=== PATIENT | male | born 1945 | race Caucasian/White ===

== ENCOUNTER 2020-09-01 19:40 | Inpatient (IN) | payer OTHER ==
--- OUTSIDE RECORDS SUMMARY | 2020-09-01 19:42 | XMS REPORT ---
:[address] [facility] Address [address] [facility] [address] [place] [address] Care Team Providers Name Role Phone Teresita Calle Unavailable [phone] PROBLEMS No Information ALLERGIES No Known Allergies ENCOUNTERS from 1945 to 2020-08-29 Encounter Location Date Provider Diagnosis [place] [facility] Aug, Teresita Calle UTI (low er urinary Specialty/Urology [address], tract infection) [place] [id number] N39.0 IMMUNIZATIONS No Information SOCIAL HISTORY Tobacco Use: Social History Observation Description Date Details (start date - stop date) Former Smoker Sex Assigned At : Social History Observation Description Sex Assigned At Unknown Alcohol Screen Question Answer Notes Did you have a drink containing alcohol in the past year? No Points 0 Interpretation Negative Tobacco Use/Smoking Question Answer Notes Are you a former smoker REASON FOR REFERRAL No Information VITAL SIGNS Height 74 in Aug, Weight 243.2 lbs Aug, Temperature 99.2 degrees Fahrenheit Aug, BMI 31.22 kg/m2 Aug, Oximetry 91 % Aug, Blood pressure systolic 175 mm Hg Aug, Blood pressure diastolic 76 mm Hg Aug, MEDICATIONS Medication SIG (Take, Route, Frequency, Start Date End Date Status Duration) Isosorbide Dinitrate 30 MG 1 tablet Orally Twice a day Active GlipiZIDE ER 10 MG 1 tablet with breakfast Orally Active Once a day B Complex - as directed Orally Active Gabapentin 300 MG 1 capsule Orally Once a day Active Lisinopril 10 MG 1 tablet Orally Once a day Active Aspirin 81 81 MG 1 tablet Orally Once a day Active Metformin HCl 1000 MG 1 tablet with a meal Orally Active Once a day Clopidogrel Bisulfate 75 MG 1 tablet Orally Once a day Active Atorvastatin Calcium 40 MG 1 tablet Orally Once a day Active BuPROPion HCl 100 MG 1 tablet Orally Twice a day Active Metoprolol Succinate 25 MG 1 capsule Orally Once a day Active PROCEDURES No Information RESULTS No Results REASON FOR VISIT f/u uti MEDICAL (GENERAL) HISTORY Type Description Date Hospitalization History 06/14/2020 Goals Section No Information Health Concerns No Information MEDICAL EQUIPMENT No Information MENTAL STATUS No Information FUNCTIONAL STATUS No Information ASSESSMENTS Encounter Date Diagnosis Notes Aug, UTI (lower urinary tract infection) (ICD -10 - N39.0) PLAN OF TREATMENT Treatment Notes Assessment Notes Clinical Notes UTI (lower urinary tract infection) Urin e reflex, negative RBC'sKeep glans/foreskin clean /dry, wash hands with [facility] prn Treatment Notes Test Name Order Date URINALYSIS AUTO W/O SCOPE ([id number]) 2020-08-29 UMIC with Reflex to Urine Culture 2020-08-29 Next Appt Details prn Reason: Insurance Providers Payer Name Payer Address Payer Insured Patient Coverage Cover age Phone Name Relationship to Start Date End Date Insured MEDICARE Attn Part B [id number] Krishna Larsen Claims [phone] [facility] [id number]
--- OUTSIDE RECORDS SUMMARY | 2020-09-01 19:42 | XMS REPORT ---
:1945 Author Organization [facility] Address [address] [facility] 200 [place] [address] Care Team Providers Name Role Phone Teresita Calle Unavailable [phone] PROBLEMS No Information ALLERGIES No Known Allergies ENCOUNTERS from 1945 to 2020-08-18 Encounter Location Date Provider Diagnosis [place] [facility] 200 13 Aug, 2020 Terseita Calle Specialty[facility] [address] IMMUNIZATIONS No Information SOCIAL HISTORY Tobacco Use: [...] REASON FOR REFERRAL No Information VITAL SIGNS No information MEDICATIONS Medication SIG (Take, Route, Frequency, Start Date End Date Status Duration) Lisinopril 10 MG 1 tablet Orally Once a day Active Isosorbide Dinitrate 30 MG 1 tablet Orally Twice a day Active BuPROPion HCl 100 MG 1 tablet Orally Twice a day Active Metoprolol Succinate 25 MG 1 capsule Orally Once a day Active Gabapentin 300 MG 1 capsule Orally Once a day Active Atorvastatin Calcium 40 MG 1 tablet Orally Once a day Active Aspirin 81 81 MG 1 tablet Orally Once a day Active B Complex - as directed Orally Active GlipiZIDE ER 10 MG 1 tablet with breakfast Orally Active Once a day Metformin HCl 1000 MG 1 tablet with a meal Orally Active Once a day Clopidogrel Bisulfate 75 MG 1 tablet Orally Once a day Active PROCEDURES No Information RESULTS No Results REASON FOR VISIT No Information MEDICAL (GENERAL) HISTORY Type Description Date Hospitalization History 06/14/2020 Goals Section No Information Health Concerns No Information MEDICAL EQUIPMENT No Information MENTAL STATUS No Information FUNCTIONAL STATUS No Information ASSESSMENTS No Information PLAN OF TREATMENT Next Appt Details Provider Name:Teresita Calle, 02:00:00 PM, [address] [place] [address], [facility] [address], [place], [address], Insurance Providers Payer Name Payer Address Payer Insured Patient Coverage Cover age Phone Name Relationship to Start Date End Date Insured MEDICARE Attn Part B [id number] Krishna Larsen Claims [phone] [facility] [id number]
--- OUTSIDE RECORDS SUMMARY | 2020-09-01 19:42 | XMS REPORT ---
:1945 Author Organization [facility] Address [address] [place], [facility] [address] [place] [address] Care Team Providers Name Role Phone Teresita Calle Unavailable [phone] PROBLEMS No Information ALLERGIES No Known Allergies ENCOUNTERS from 1945 to 2020-08-16 Encounter Location Date Provider Diagnosis [place] [address] [facility] Aug, Teresita Calle UTI (osmel cardozo urinary Specialty/Urology [address], tract infection) [place] [id number] N39.0 IMMUNIZATIONS No Information SOCIAL HISTORY Tobacco [...] in Aug, Weight 243.2 lbs Aug, Temperature 98.4 degrees Fahrenheit Aug, BMI 31.22 kg/m2 Aug, Oximetry 95 % Aug, Blood pressure systolic 152 mm Hg Aug, Blood pressure diastolic 66 mm Hg Aug, MEDICATIONS Medication SIG (Take, Route, Frequency, Start Date End Date Status Duration) Metoprolol Succinate 25 MG 1 capsule Orally Once a day Active Atorvastatin Calcium 40 MG 1 tablet Orally Once a day Active Clopidogrel Bisulfate 75 MG 1 tablet Orally Once a day Active Gabapentin 300 MG 1 capsule Orally Once a day Active Lisinopril 10 MG 1 tablet Orally Once a day Active GlipiZIDE ER 10 MG 1 tablet with breakfast Orally Active Once a day Metformin HCl 1000 MG 1 tablet with a meal Orally Active Once a day Isosorbide Dinitrate 30 MG 1 tablet Orally Twice a day Active Aspirin 81 81 MG 1 tablet Orally Once a day Active BuPROPion HCl 100 MG 1 tablet Orally Twice a day Active B Complex - as directed Orally Active PROCEDURES No Information RESULTS No Results REASON FOR VISIT UTI/ANITHA MICHAEL MEDICAL (GENERAL) HISTORY Type Description Date Hospitalization History 06/14/2020 Goals Section No Information Health Concerns No Information MEDICAL EQUIPMENT No Information MENTAL STATUS No Information FUNCTIONAL STATUS No Information ASSESSMENTS Encounter Date Diagnosis Notes Aug, UTI (lower urinary tract infection) (ICD -10 - N39.0) PLAN OF TREATMENT Treatment Notes Assessment Notes Clinical Notes UTI (lower urinary tract infection) Urin e reflex, check for RBC'sKeep glans/foreskin clean /dry, wash hands with each urinationObtain PSA from [facility] from [facility] 2 weeks, urine check again, reports uti r eturns after 2 weeks when done with abx Treatment Notes Test Name Order Date URINALYSIS AUTO W/O SCOPE ([id number]) 2020-08-16 UMIC with Reflex to Urine Culture 2020-08-16 PVR 2020-08-16 Next Appt Details 2 Weeks Reason:Urine Provider Name:Teresita Calle, 02:00:00 PM, [address] [place] [address] S, [address], [place], [address], Follow Up:2 WeeksUrine Insurance Providers Payer Name Payer Address Payer Insured Patient Coverage Cover age Phone Name Relationship to Start Date End Date Insured MEDICARE Attn Part B [id number] Krishna Larsen Claims [phone] [facility] [id number]
--- OUTSIDE RECORDS SUMMARY | 2020-09-01 19:42 | XMS REPORT | Continuity of Care Document ---
:1945 Author Organization [facility] t Address [address] [place] [place] [address] Care Team Providers Name Role Phone Unavailable Unavailable Unavailable Problems This patient has no known problems. Allergies, Adverse Reactions, Alerts This patient has no known allergies or adverse reactions. Medications This patient has no known medications. Procedures This patient has no known procedures. Encounters Start End Encounter Admission Attending Care Care Encounter Source Date/Time Date/Time Type Type Clinicians Facility Department ID 2020-08-26 2020-08-26 Outpatient [facility] [id number] [facility] 2020-08-17 2020-08-17 Outpatient [facility] [id number] [facility] 2020-08-12 2020-08-12 Outpatient [facility] [id number] [facility] Results This patient has no known results.
[2020-09-01] MEDS ORDERED: MORPHINE 4 MG/ML SYR ONE (20:16)
[2020-09-01] MEDS ORDERED: ONDANSETRON 4 MG/2 ML VIAL ONE (20:17)
[2020-09-01] MEDS ORDERED: NA CHLORIDE 0.9% 1,000 ML ONE ×2 (20:17→21:37)
[2020-09-01 20:27] LABS: Absolute Lymphocytes (CBC) 2.3 K/uL (0.7-4.9); Basophils % 0.6 % (0-1.3); Hematocrit 38.3 % (39.6-49.0); Lymphocytes % 19.2 % (15.3-44.8); MPV 7.6 fL (7.6-11.3); RBC Red Blood Cell Count 4.46 M/uL (4.33-5.43)
--- NOTE | 2020-09-01 20:27 | EDPHYS ---
Physician Documentation [facility] Name: Jared Larsen Age: 75 yrs Sex: Male : 1945 Arrival Date: 09/01/2020 Time: 19:42 Bed 5 Private MD: ED Physician Darshan Skelton HPI: 09/01 20:16 This 75 yrs old Male presents to ER via Ambulatory with complaints of Pain pkl All Over. 20:16 The patient presents with abdominal pain that is diffuse. Onset: The symptoms/episode pkl began/occurred 1 week(s) ago, and became worse 4 day(s) ago. Historical: - Allergies: 19:56 No Known Allergies; ll1 - PMHx: 19:56 Hypertension; Hyperlipidemia; heart disease; Pancreatitis; Diverticulitis; ll1 - PSHx: 19:56 Hernia repair; triple A repair; cataract repair; ll1 - Immunization history:: Flu vaccine is not up to date. - Social history:: Smoking status: Patient denies any tobacco usage or history of. ROS: 20:16 Eyes: Negative for injury, pain, redness, and discharge, ENT: Negative for injury, pkl pain, and discharge, Neck: Negative for injury, pain, and swelling, Cardiovascular: Negative for chest pain, palpitations, and edema, Respiratory: Negative for shortness of breath, cough, wheezing, and pleuritic chest pain. 20:16 Abdomen/GI: Positive for abdominal pain, of the right upper quadrant and left upper quadrant. 20:16 Back: Negative for acute changes. 20:16 : Negative for urinary symptoms. 20:16 MS/extremity: Negative for acute changes. 20:16 Skin: Negative for rash. 20:16 Neuro: Negative for altered mental status, loss of consciousness. Exam: 20:16 Head/Face: Normocephalic, atraumatic. Eyes: Pupils equal round and reactive to light, pkl extra-ocular motions intact. Lids and lashes normal. Conjunctiva and sclera are non-icteric and not injected. Cornea within normal limits. Periorbital areas with no swelling, redness, or edema. ENT: Nares patent. No nasal discharge, no septal abnormalities noted. Tympanic membranes are normal and external auditory canals are clear. Oropharynx with no redness, swelling, or masses, exudates, or evidence of obstruction, uvula midline. Mucous membranes moist. Neck: Trachea midline, no thyromegaly or masses palpated, and no cervical lymphadenopathy. Supple, full range of motion without nuchal rigidity, or vertebral point tenderness. No Meningismus. Chest/axilla: Normal chest wall appearance and motion. Nontender with no deformity. No lesions are appreciated. Cardiovascular: Regular rate and rhythm with a normal S1 and S2. No gallops, murmurs, or rubs. Normal PMI, no JVD. No pulse deficits. Respiratory: Lungs have equal breath sounds bilaterally, clear to auscultation and percussion. No rales, rhonchi or wheezes noted. No increased work of breathing, no retractions or nasal flaring. 20:16 Abdomen/GI: Bowel sounds: normal, Palpation: soft, mild abdominal tenderness, in the right upper quadrant and left upper quadrant. 20:16 Back: Exam negative for acute changes. 20:16 : Exam negative for acute changes. 20:16 Musculoskeletal/extremity: Exam is negative for acute changes. 20:16 Skin: Exam negative for rash. 20:16 Neuro: Orientation: is normal, Mentation: is normal, Cranial nerves: grossly normal, Motor: is normal. Vital Signs: 19:54 BP 164 / 103; Pulse 68; Resp 18; Temp 97.6; Pulse Ox 95% ; Weight 111.13 kg; Height 6 ll1 ft. 2 in. (187.96 cm); Pain 8/10; 21:25 BP 149 / 58; Pulse 62; Resp 16; Pulse Ox 98% on R/A; rv 19:54 Body Mass Index 31.46 (111.13 kg, 187.96 cm) ll1 MDM: 19:44 Patient medically screened. pkl 20:24 Data reviewed: vital signs, nurses notes, lab test result(s), radiologic studies, CT pkl scan. ED course: Talked to Alberto Lucero, it ( Dr. Giraldo ). 09/01 20:11 Order name: Basic Metabolic Panel; Complete Time: 21:17 pkl 09/01 20:11 Order name: CBC with Diff; Complete Time: 21:17 pkl 09/01 20:11 Order name: Hepatic Function; Complete Time: :17 pkl 09/01 20:11 Order name: Lipase; Complete Time: 21:17 pkl 09/01 20:43 Order name: COVID-19 pkl 09/01 20:43 Order name: [facility] 09/01 20:11 Order name: IV Saline Lock; Complete Time: 20:14 pkl 09/01 20:11 Order name: Labs collected and sent; Complete Time: 20:14 pkl 09/01 20:24 Order name: NPO; Complete Time: 20:36 sg Administered Medications: 20:14 Drug: NS 0.9% 500 ml Route: IV; Rate: bolus; Site: right forearm; rv 21:07 Follow up: IV Status: Completed infusion; IV Intake: 500ml rv 20:14 Drug: morphine 4 mg Route: IVP; Site: right forearm; rv 21:08 Follow up: Response: No adverse reaction; Pain is unchanged, physician notified; RASS: rv Alert and Calm (0) 20:14 Drug: Zofran (Ondansetron) 4 mg Route: IVP; Site: right forearm; rv 21:08 Follow up: Response: No adverse reaction rv 20:40 Drug: Demerol 25 mg Route: IVP; Site: right forearm; sg 21:20 Follow up: Response: No adverse reaction; Pain is decreased sg 20:40 Drug: NS 0.9% 500 ml Route: IV; Rate: bolus; Site: right forearm; sg 21:15 Follow up: Response: No adverse reaction; IV Intake: 500ml sg 21:25 Follow up: IV Status: Completed infusion; IV Intake: 500ml rv 21:25 Drug: NS 0.9% 1000 ml Route: IV; Rate: 125 ml/hr; Site: right antecubital; rv 21:58 Follow up: IV Status: Infusion continued upon admission rv Disposition: 09/01/20 20:26 Hospitalization ordered by Kirill Giraldo for Inpatient Admission. Preliminary diagnosis is Acute pancreatitis. - Bed requested for Telemetry/MedSurg (Inpatient). - Status is Inpatient Admission. rv - Condition is Stable. - Problem is new. - Symptoms are unchanged. Signatures: Dispatcher [employer] EDWI Kleber Lopez RN RN sg Lam, Pin, MD MD pkl Attema, Lee, TRAINING PROGRAM MANAGER-C TRAINING PROGRAM MANAGER-Cla1 Vanna Lindquist RN RN tl1 Rowdy Augustin RN RN Jean Carlos Chapa RN RN ll1 Corrections: (The following items were deleted from the chart) 21:22 20:26 Hospitalization Ordered by Kirill Giraldo DO for Inpatient Admission. Preliminary tl1 diagnosis is Acute pancreatitis. Bed requested for Telemetry/MedSurg (Inpatient). Status is Inpatient Admission. Condition is Stable. Problem is new. Symptoms are unchanged. pkl 21:57 21:22 09/01/2020 20:26 Hospitalization Ordered by Kirill Giraldo DO for Inpatient rv Admission. Preliminary diagnosis is Acute pancreatitis. Bed requested for Telemetry/MedSurg (Inpatient). Status is Inpatient Admission. Condition is Stable. Problem is new. Symptoms are unchanged. tl1
--- NOTE | 2020-09-01 20:27 | ER ---
Nurse's Notes [facility] Name: Jared Larsen Age: 75 yrs Sex: Male : 1945 Arrival Date: 09/01/2020 Time: 19:42 Bed 5 Private MD: Diagnosis: Acute pancreatitis Presentation: 09/01 19:54 Chief complaint: Patient states: Abdominal pain since Sunday with constipation. Had CT ll1 today at [place], was told to come to ER for pancreatitis. No fever. Coronavirus screen: Client denies travel out of the [place] in the last 14 days. At this time, the client does not indicate any symptoms associated with coronavirus-19. Ebola Screen: Patient denies travel to an Ebola-affected area in the 21 days before illness onset. Initial Sepsis Screen: Does the patient meet any 2 criteria? No. Patient's initial sepsis screen is negative. Does the patient have a suspected source of infection? Yes: Acute abdominal pain. Risk Assessment: Do you want to hurt yourself or someone else? Patient reports no desire to harm self or others. Onset of symptoms was August 28, 2020. 19:54 Method Of Arrival: Ambulatory ll1 19:54 Acuity: YANIV 3 ll1 Historical: - Allergies: 19:56 No Known Allergies; ll1 - PMHx: 19:56 Hypertension; Hyperlipidemia; heart disease; Pancreatitis; Diverticulitis; ll1 - PSHx: 19:56 Hernia repair; triple A repair; cataract repair; ll1 - Immunization history:: Flu vaccine is not up to date. - Social history:: Smoking status: Patient denies any tobacco usage or history of. Screenin:21 Abuse screen: Denies threats or abuse. Denies injuries from another. Nutritional rv screening: No deficits noted. Tuberculosis screening: No symptoms or risk factors identified. Fall Risk None identified. Assessment: 20:20 General: Appears comfortable, Behavior is calm, cooperative. Pain: Pain: Complains of rv pain in abdomen. Neuro: Level of Consciousness is awake, alert, obeys commands, Oriented to person, place, time, situation. Cardiovascular: Patient's skin is warm and dry. Respiratory: Airway is patent Respiratory effort is even, unlabored, Breath sounds are clear bilaterally. Derm: Skin is intact. 21:30 Reassessment: outside lab, Stanley notified pt to be hospitalized, swab to be ran in house. Vital Signs: 19:54 BP 164 / 103; Pulse 68; Resp 18; Temp 97.6; Pulse Ox 95% ; Weight 111.13 kg; Height 6 ll1 ft. 2 in. (187.96 cm); Pain 8/10; 21:25 BP 149 / 58; Pulse 62; Resp 16; Pulse Ox 98% on R/A; rv 19:54 Body Mass Index 31.46 (111.13 kg, 187.96 cm) ll1 ED Course: 19:42 Patient arrived in ED. cl3 19:44 Darshan Skelton MD is Attending Physician. pkl 19:47 Rowdy Augustin RN is Primary Nurse. rv 19:55 Triage completed. ll1 19:57 Arm band placed on Patient placed in an exam room, on a stretcher. ll1 20:10 Inserted saline lock: 20 gauge in right forearm, using aseptic technique. Blood rv collected. 20:10 Initial lab(s) drawn, by me, sent to lab. rv 20:21 Patient has correct armband on for positive identification. Bed in low position. Call rv light in reach. Side rails up X 1. Adult w/ patient. Pulse ox on. NIBP on. 20:25 Kirill Giraldo DO is Hospitalizing Provider. pkl 21:00 COVID 19 swab done and sent to lab at this time. sg 21:26 No provider procedures requiring assistance completed. IV is patent, with fluids rv infusing freely, Patient admitted, IV remains in place. Administered Medications: 20:14 Drug: NS 0.9% 500 ml Route: IV; Rate: bolus; Site: right forearm; rv 21:07 Follow up: IV Status: Completed infusion; IV Intake: 500ml rv 20:14 Drug: morphine 4 mg Route: IVP; Site: right forearm; rv 21:08 Follow up: Response: No adverse reaction; Pain is unchanged, physician notified; RASS: rv Alert and Calm (0) 20:14 Drug: Zofran (Ondansetron) 4 mg Route: IVP; Site: right forearm; rv 21:08 Follow up: Response: No adverse reaction rv 20:40 Drug: Demerol 25 mg Route: IVP; Site: right forearm; sg 21:20 Follow up: Response: No adverse reaction; Pain is decreased sg 20:40 Drug: NS 0.9% 500 ml Route: IV; Rate: bolus; Site: right forearm; sg 21:15 Follow up: Response: No adverse reaction; IV Intake: 500ml sg 21:25 Follow up: IV Status: Completed infusion; IV Intake: 500ml rv 21:25 Drug: NS 0.9% 1000 ml Route: IV; Rate: 125 ml/hr; Site: right antecubital; rv 21:58 Follow up: IV Status: Infusion continued upon admission rv Intake: 21:07 IV: 500ml; Total: 500ml. rv 21:15 IV: 500ml; Total: 1000ml. sg 21:25 IV: 500ml; Total: 1500ml. rv Outcome: 20:26 Decision to Hospitalize by Provider. pkl 21:26 Admitted to Med/surg accompanied by tech, via wheelchair, room 228, Other sbar Report rv called to [facility] 21:26 Condition: good 21:26 Instructed on the need for admit. 21:57 Patient left the ED. rv Signatures: Kleber Lopez RN RN sg Darshan Skelton MD MD pkl Rowdy Augustin RN Duane Hunter cl3 Jean Carlos Myles RN RN ll1 Corrections: (The following items were deleted from the chart) 20:40 20:40 NS 0.9% 500 ml IV at bolus in right antecubital sg sg 21:08 21:07 IV Status: Completed infusion; IV Intake: 500ml rv rv 21:57 21:26 Admitted to Med/surg accompanied by tech, via wheelchair, room 228, Other sbar rv Report called to [facility] rv
[2020-09-01 20:46] LABS: Albumin 3.9 g/dL (3.4-5.0); Bilirubin Direct 0.2 mg/dL (0-0.2); Bilirubin Total 0.4 mg/dL (0.2-1.0); Potassium 4.3 mmol/L (3.5-5.1); Protein, Total 8.2 g/dL (6.4-8.2)
[2020-09-01] MEDS ORDERED: MEPERIDINE HCL 25 MG/ML SYR ONE (20:51)
--- NOTE | 2020-09-01 21:50 | P.HP ---
Certification for Inpatient Patient admitted to: Inpatient With expected LOS: >2 Midnights Patient will require the following post-hospital care: None Practitioner: I am a practitioner with admitting privileges, knowledge of patient current condition, hospital course, and medical plan of care. Services: Services provided to patient in accordance with Admission requirements found in Title 42 Section 412.3 of the Code of Federal Regulations <Alberto Lucero - Last Filed: 09/01/20 21:45> Patient History Date of Service: 09/01/20 Primary Care Provider: [place], Cardiology-Dr. Brown Reason for admission: Pancreatitis History of Present Illness: 75-year-old male with history of diabetes mellitus type 2, coronary artery disease status post CABG, peripheral vascular disease, pancreatitis, hypertension presents emergency department for abdominal pain. Patient was seen by primary care doctor and had outpatient CT scan which revealed mild pancreatitis, private physician recommended patient presents emergency department for further evaluation and management. Patient was evaluated in the emergency department and found to have mildly elevated lipase at 499, white blood cell count 12.2. Patient reports 1 previous episode of pancreatitis which was also a mild. Patient came with radiology report from [facility] revealing mild pancreatitis, disk was also reviewed by on site radiologist to agreed with read. ED provider wishes to admit patient for further evaluation and management. When I saw the patient in the emergency department he was awake, alert, oriented x3. Patient reporting mild epigastric pain and tenderness. Patient is a [place] patient but also has Medicare and states that he does not want to have to deal with the [place] and prefers to be admitted here. - Past Medical/Surgical History -: Diabetes mellitus type 2 -: Hypertension -: Hyperlipidemia -: Pancreatitis -: Aortic aneurysm with repair -: Peripheral vascular disease -: Abdominal aortic aneurysm repair -: Hernia repair -: CABG Psychosocial/ Personal History: Patient is disabled , lives with his - Family History Family History: Reviewed- Non-Contributory - Social History Smoking Status: Former smoker Alcohol use: No CD- Drugs: No Caffeine use: Yes Place of Residence: Home <Alberto Lucero - Last Filed: 09/01/20 21:45> Date of Service: 09/02/20 Home medications list reviewed: Yes - Past Medical/Surgical History Diabetic: Yes - Family History Family History: Reviewed- Non-Contributory <Kirill Giraldo - Last Filed: 09/02/20 09:11> Allergies No Known Allergies Allergy (Verified 09/01/20 22:44) Home Medications: Aspirin [Aspirin EC 81 MG] 81 mg PO DAILY 09/01/20 Atorvastatin Calcium [Lipitor] 20 mg PO BEDTIME 09/01/20 Bupropion HCl [Wellbutrin] 150 mg PO DAILY 09/01/20 Clopidogrel Bisulfate [Plavix] 1 tab PO DAILY 09/01/20 Gabapentin 300 mg PO TID 09/01/20 Insulin Glargine Human [Lantus] 50 unit SQ BIDWM 09/01/20 Isosorbide Mononitrate [Isosorbide Mononitrate ER] 30 mg PO BID 09/01/20 Levothyroxine Sodium 25 mcg PO [id number] 09/01/20 Lisinopril [Zestril] 10 mg PO DAILY 09/01/20 Metformin HCl 1,000 mg PO BIDWM 09/01/20 Metoprolol Succinate 25 mg PO DAILY 09/01/20 Vitamin B Complex [B Complex] 1 each PO DAILY 09/01/20 glipiZIDE [Glipizide] 20 mg PO BIDWM 09/01/20 hydrOXYzine HCL [Atarax] 50 mg PO BEDTIME PRN 09/01/20 Review of Systems 10-point ROS is otherwise unremarkable Gastrointestinal: Nausea, Abdominal Pain <Alberto Lucero - Last Filed: 09/01/20 21:45> Physical Examination - Physical Exam General: Alert, In no apparent distress HEENT: Atraumatic, PERRLA, Mucous membr. moist/pink Neck: Supple, 2+ carotid pulse no bruit, No LAD Respiratory: Clear to auscultation bilaterally, Normal air movement Cardiovascular: Regular rate/rhythm, Normal S1 S2 Gastrointestinal: Normal bowel sounds, Tenderness (Mild generalized abdominal tenderness, worse in the epigastric region) Musculoskeletal: No tenderness Integumentary: No rashes Neurological: Normal speech, Normal strength at 5/5 x4 extr, Normal tone, Normal affect - Studies Laboratory Data (last 24 hrs) 09/01/20 20:10: WBC 12.2 H, Hgb 13.0 L, Hct 38.3 L, Plt Count 236 09/01/20 20:10: Sodium 141, Potassium 4.3, BUN 14, Creatinine 1.00, Glucose 116 H, Total Bilirubin 0.4, AST 15, ALT 27, Alkaline Phosphatase 80, Lipase 499 H <Alberto Lucero - Last Filed: 09/01/20 21:45> - Studies Laboratory Data (last 24 hrs) 09/01/20 20:10: WBC 12.2 H, Hgb 13.0 L, Hct 38.3 L, Plt Count 236 09/01/20 20:10: Sodium 141, Potassium 4.3, BUN 14, Creatinine 1.00, Glucose 116 H, Total Bilirubin 0.4, AST 15, ALT 27, Alkaline Phosphatase 80, Lipase 499 H <Kirill Giraldo - Last Filed: 09/02/20 09:11> Assessment and Plan - Plan Assessment Mild acute pancreatitis Diabetes mellitus type 2 Hypertension Hyperlipidemia CAD and PVD history of CABG Plan Mild acute pancreatitis: NPO, IV fluids. P.r.n. pain and nausea medications. Trend lipase, daily labs. DVT prophylaxis Lovenox 40 mg subcutaneous once daily. Will obtain lipid panel with morning labs. Patient denies alcohol use or abuse. Diabetes mellitus type 2: Q.6h blood sugars as patient is NPO at this time, sliding scale insulin therapy. Will check A1c with morning labs. Hypertension: Hold p.o. medications at this time, continue with p.r.n. IV medications and tell patient can tolerate p.o. then restart home medications. Hyperlipidemia: Hold p.o. medications CAD and PVD history of CABG: Hold p.o. medications at this time. Will restart once patient is tolerating p.o.. Discharge Plan: Home Plan to discharge in: 24 Hours - Advance Directives Does patient have a Living Will: No Does patient have a Durable POA for Healthcare: No - Code Status/Comfort Care Code Status Assessed: Yes (Full code) Critical Care: No Time Spent Managing Pts Care (In Minutes): 55 <Alberto Lucero - Last Filed: 09/01/20 21:45> - Plan Case discussed in detail with nurse practitioner. Agree with evaluation, assessment and plan of care. Patient has improved. Will obtain CT scan from other facility. Will obtain abdominal ultrasound to further evaluate. Will start with a clear liquid diet today. Will continue to further assess. Please see progress note for details. <Kirill Giraldo - Last Filed: 09/02/20 09:11>
[2020-09-01] MEDS ORDERED: INSULIN -REGULAR HUMAN 50 UNIT/0.5 ML ML SQ SCH (21:56)
[2020-09-01] MEDS ORDERED: ONDANSETRON 4 MG/2 ML VIAL IV PRN (21:56)
[2020-09-01] MEDS ORDERED: NA CHLORIDE 0.9% 1,000 ML IV SCH (21:56)
[2020-09-01 23:09] VITALS: BMI 31.4
[2020-09-01] MEDS: D5 0.45 NS 1,000 ML IV SCH (23:30)
[2020-09-02] MEDS ORDERED: INSULIN -REGULAR HUMAN 50 UNIT/0.5 ML ML SQ SCH
[2020-09-02] MEDS: MEPERIDINE HCL 25 MG/ML SYR IVP PRN ×4 (00:21→15:09)
[2020-09-02 04:48] LABS: Urine Appearance CLEAR; Urine Bilirubin NEGATIVE (NEG); Urine Blood NEGATIVE (NEG); Urine Color YELLOW; Urine Glucose NEGATIVE (NEG); Urine Protein NEGATIVE (NEG); Urine Specific Gravity 1.015 (1.005-1.030); Urine Urobilinogen 0.2 mg/dL (0.2-1.0); Urine pH 5.5 (5.0-7.0)
[2020-09-02 04:51] LABS: Urine Microscopic Reflex NO UMIC
[2020-09-02 05:57] LABS: Absolute Lymphocytes (CBC) 2.4 K/uL (0.7-4.9); Basophils % 0.5 % (0-1.3); Lymphocytes % 28.3 % (15.3-44.8); MPV 7.3 fL (7.6-11.3); RBC Red Blood Cell Count 4.14 M/uL (4.33-5.43)
[2020-09-02] MEDS: INSULIN -REGULAR HUMAN 50 UNIT/0.5 ML ML SQ SCH ×5 (06:00→20:58)
[2020-09-02 06:05] LABS: Albumin 3.2 g/dL (3.4-5.0); Bilirubin Total 0.4 mg/dL (0.2-1.0); Potassium 4.1 mmol/L (3.5-5.1); Protein, Total 7.2 g/dL (6.4-8.2)
[2020-09-02 06:10] LABS: Thyroid Stimulating Hormone 6.8 uIU/mL (0.360-3.740)
[2020-09-02] MEDS: ISOSORBIDE MONO SR 30 MG TAB PO SCH ×3 (08:56→20:00)
[2020-09-02] MEDS: CLOPIDOGREL 75 MG TABLET PO SCH (08:56)
[2020-09-02] MEDS: METOPROLOL XL 25 MG TAB PO SCH (08:56)
[2020-09-02] MEDS: ENOXAPARIN 40 MG/0.4 ML SQ SCH (08:56)
[2020-09-02] MEDS: ASPIRIN EC 81 MG TAB PO SCH (08:57)
[2020-09-02] MEDS: BUPROPION HCL 150 MG PO SCH (08:57)
[2020-09-02] MEDS: lisinopriL 10 MG TAB PO SCH (09:00)
[2020-09-02] MEDS: VITAMIN B COMPLEX 1 CAP PO SCH (09:03)
[2020-09-02] MEDS: D5 0.45 NS 1,000 ML IV SCH ×2 (09:04→17:36)
--- NOTE | 2020-09-02 09:05 | RAD REPORT ---
EXAM DESCRIPTION: US - Abdomen Exam Complete - 09/02/2020 8:32 am CLINICAL HISTORY: Abdominal pain COMPARISON: none FINDINGS: The liver has a mildly increased echotexture which may indicate mild fatty infiltration A gallstone is not seen. The gallbladder wall is not thickened. The biliary tree is normal caliber. G allbladder is mildly distended The pancreas is enlarged and hypoechoic. A pseudocyst is not seen The right kidney measures 11 centimeters with a normal echotexture. The left kidney measures 11 centimeters with a normal echotexture. 3.3 centimeter cyst. Additional 1. 2 centimeters cyst The spleen measures 12 centimeters. The proximal and mid abdominal aorta and inferior vena cava appear unremarkable. The distal abdominal aorta and the patient's known stent are not visualized secondary to overlying bowel gas IMPRESSION: Enlarged and hypoechoic pancreas consistent with pancreatitis. A pseudocyst is not seen
--- NOTE | 2020-09-02 09:16 | P.PN ---
Subjective Date of Service: 09/02/20 Primary Care Provider: [place], Cardiology-Dr. Brown Chief Complaint: Pancreatitis Physical Examination - Vital Signs Temperature: 97.1 F Blood Pressure: 168/60 Pulse: 67 Respirations: 19 Pulse Ox (%): 94 - Studies Laboratory Data (last 24 hrs) 09/01/20 20:10: WBC 12.2 H, Hgb 13.0 L, Hct 38.3 L, Plt Count 236 09/01/20 20:10: Sodium 141, Potassium 4.3, BUN 14, Creatinine 1.00, Glucose 116 H, Total Bilirubin 0.4, AST 15, ALT 27, Alkaline Phosphatase 80, Lipase 499 H Assessment & Plan Discharge Plan: Home Plan to discharge in: 48 Hours Physician Review Additional Text: Impression: Acute pancreatitis, etiology unknown Diabetes mellitus type 2 Hypertension Hyperlipidemia CAD and PVD history of CABG Depression Diabetic neuropathy Plan Acute pancreatitis, etiology unknown: Patient reports history of pancreatitis in the past. Will obtain CT scan from recent facility and have Radiology review. Will also order abdominal ultrasound to further evaluate. Patient appears improved. Pain seems to be well controlled. Minimal pain to the epigastric region. No significant nausea vomiting noted. Lipase also improved. Will start with a clear liquid diet at this time. Will advance diet slowly and monitor closely. Continue IV fluids, pain medication. Will monitor lipase. Continue DVT prophylaxis. Anticipate improvement over the next 48 hr. Diabetes mellitus type 2, insulin dependent, controlled: A1c well controlled at 7.0. Will continue Accu-Cheks and sliding scale. Patient also takes glipizide, metformin, and high-dose insulin. May need to make adjustments while here. Will monitor closely on sliding scale. Hypertension: Restart home medication of lisinopril and metoprolol. Will monitor and adjust appropriately. Hyperlipidemia: Triglycerides slightly elevated. Will start fish oil. CAD and PVD history of CABG: Will start Plavix and isosorbide mononitrate. Depression: Restart Wellbutrin Diabetic neuropathy: Restart gabapentin Time Spent Managing Pts Care (In Minutes): 55
[2020-09-02] MEDS ORDERED: TRAMADOL HCL 50 MG TAB PO PRN (12:52)
[2020-09-02] MEDS: NACHLORIDE 0.45% 1,000 ML IV SCH (17:00)
[2020-09-02] MEDS: HYDROCODONE/APAP 7.5/325 MG TAB PO PRN (19:59)
[2020-09-02] MEDS: DOCOSAHEXANOIC AC/EPA 1000 MG PO SCH (20:00)
[2020-09-02] MEDS: ATORVASTATIN 20 MG TAB PO SCH (20:00)
[2020-09-02] MEDS: GABAPENTIN 300 MG CAP PO SCH (20:00)
[2020-09-02] MEDS: hydrOXYzine HCL 25 MG TAB PO PRN (23:44)
[2020-09-03] MEDS: HYDROCODONE/APAP 7.5/325 MG TAB PO PRN ×4 (03:20→21:54)
[2020-09-03] MEDS: NACHLORIDE 0.45% 1,000 ML IV SCH ×2 (05:34→08:52)
[2020-09-03] MEDS: LEVOTHYROXINE SOD 0.025 MG TAB PO SCH (05:35)
[2020-09-03 06:16] LABS: Absolute Lymphocytes (CBC) 2.5 K/uL (0.7-4.9); Basophils % 0.5 % (0-1.3); Hematocrit 34.7 % (39.6-49.0); MPV 7.4 fL (7.6-11.3); RBC Red Blood Cell Count 4.03 M/uL (4.33-5.43)
[2020-09-03 06:37] LABS: Albumin 3.4 g/dL (3.4-5.0); Bilirubin Total 0.5 mg/dL (0.2-1.0); Magnesium 2.3 mg/dL (1.8-2.4); Potassium 4.2 mmol/L (3.5-5.1); Protein, Total 7.3 g/dL (6.4-8.2)
[2020-09-03] MEDS: INSULIN -REGULAR HUMAN 50 UNIT/0.5 ML ML SQ SCH ×4 (07:30→21:00)
--- NOTE | 2020-09-03 07:30 | P.DS ---
Admission Date: 09/01/20 Discharge Date: 09/04/20 Primary Care Provider: [place], Cardiology-Dr. Brown Disposition: ROUTINE DISCHARGE Discharge Condition: GOOD Reason for Admission: Pancreatitis Consultations: None Procedures: COVID: Negative CT scan: Reported pancreatitis ABUS: FINDINGS: The liver has a mildly increased echotexture which may indicate mild fatty infiltration A gallstone is not seen. The gallbladder wall is not thickened. The biliary tree is normal caliber. Gallbladder is mildly distended The pancreas is enlarged and hypoechoic. A pseudocyst is not seen The right kidney measures 11 centimeters with a normal echotexture. The left kidney measures 11 centimeters with a normal echotexture. 3.3 centimeter cyst. Additional 1.2 centimeters cyst The spleen measures 12 centimeters. The proximal and mid abdominal aorta and inferior vena cava appear unremarkable. The distal abdominal aorta and the patient's known stent are not visualized secondary to overlying bowel gas IMPRESSION: Enlarged and hypoechoic pancreas consistent with pancreatitis. A pseudocyst is not seen KUB: COMPARISON: No comparisons FINDINGS: Air is present within non distended stomach. No small bowel dilatation. No free air or pneumatosis. Moderately large stool volume is present from cecum to mid descending colon. There is contrast material intermixed within the stool volume. No abnormal stool volume in the distal descending colon, sigmoid colon or rectum. Arterial calcifications are present. Aortioiliac stenting in place. No suspicious calcifications. Bony degenerative change present with no acute finding. IMPRESSION: Moderate stool volume mixed with contrast material fills but does not dilate colon from cecum to mid descending colon. Medical Problem List: Acute pancreatitis, etiology unknown possibly related to hypertriglyceridemia or medication Diabetes mellitus type 2 Hypertension Hyperlipidemia CAD and PVD history of CABG Depression Diabetic neuropathy Constipation Brief History of Present Illness: 75-year-old male with history of diabetes mellitus type 2, coronary artery disease status post CABG, peripheral vascular disease, hypertension presents emergency department for abdominal pain. Patient was seen by primary care doctor and had outpatient CT scan which revealed mild pancreatitis. Patient reported history of pancreatitis in the past. His private physician recommended patient go to the emergency department for further evaluation and management. Patient was evaluated in the emergency department and found to have mildly elevated lipase at 499, white blood cell count 12.2. Patient came with radiology report from [facility] revealing mild pancreatitis. Patient was admitted for further evaluation and treatment. Hospital Course: Patient presented with abdominal pain, nausea and vomiting. Patient found to have acute pancreatitis. Patient was admitted for further evaluation and treatment. Mild elevation in lipase was noted. Patient with history of pancreatitis in the past. CT scan done at another facility showed pancreatitis. No pseudocyst mention. Abdominal ultrasound done here showed no cholecystitis or biliary tree abnormality. Pancreas appeared and largest suspicious for pancreatitis. No pseudocyst noted. The patient did well then the course of his stay. His diet was slowly advanced. At discharge he is without significant nausea, vomiting or abdominal pain. Etiology of pancreatitis has not been determined. Triglycerides were found to be slightly elevated at 160. Medications reviewed to determine if medication related. At discharge patient will continue with a soft 2000 ADA diet. The patient will be started on fish oil 1000 mg 1 pill twice daily for his hypertriglyceridemia. Will also recom mend to discontinue metformin and glipizide as the patient's diabetes is very well controlled on insulin therapy. Recommendation is for the patient to follow up with GI as an outpatient to further evaluate possible etiology of his pancreatitis. Patient with diabetes mellitus type 2 insulin dependent. Diabetes is well controlled at 7.0. Patient did not require any glipizide or metformin during his stay. Patient was on insulin sliding scale in the hospital. Medications reviewed. Glipizide was discontinued due to increase risk of hypoglycemia especially in an elderly patient. Metformin was discontinued as this may be a possible reason for his pancreatitis. At discharge patient will continue with Lantus 10 units subcu at bedtime. Recommend to monitor blood sugar at least twice daily. Recommend to maintain blood sugar less than 140 fasting and less than 200 after meals. Further adjustment in his Lantus may be required. If blood sugars remain elevated consider restarting metformin. This can be done with the help of his PCP. Patient with hypertension. This has remained stable. At discharge patient will continue with lisinopril 10 mg daily and Toprol-XL 25 mg daily. Recommend to maintain blood pressure less than 130/80. Further adjustment in his medication can be done by his PCP. Patient with mixed hyperlipidemia. Triglyceride level slightly elevated at 160. At discharge patient will continue with Lipitor 20 mg daily. Additional medication fish oil 1000 mg 1 pill twice daily has been added. Recommend to recheck fasting lipid panel in 4-6 weeks to monitors progress. Further adjustment can be done by his PCP. Patient with history of CAD, PVD and prior CABG. At discharge patient will continue with aspirin 81 mg daily, Plavix 75 mg daily, and Imdur 30 mg 1 pill twice daily. Recommend follow up with cardiology as directed. Patient with history of depression. At discharge he may continue with Wellbutrin 150 mg daily. Patient with diabetic neuropathy. Patient takes gabapentin 300 mg 3 times a day but he mentions that he primarily takes it at night. Further adjustment in his medication can be done by his PCP. Patient with hypothyroidism. At discharge patient may continue with his levothyroxine 25 mcg daily. Tsh 6.8, free T4 0.97. Recommend to recheck tsh and free T4 in 4-6 weeks. Further adjustment may be required. This can be done with the help of his PCP. Patient had some constipation. Patient will be given lactulose twice daily as needed for constipation. Encourage prune juice. Patient may take stool softener as well. Also encouraged to use incentive spirometer. Vital Signs/Physical Exam: Temp Pulse Resp BP Pulse Ox 98.2 F 60 19 144/65 H 96 09/03/20 04:00 09/03/20 04:00 09/03/20 04:20 09/03/20 04:00 09/03/20 04:20 General: Alert, In no apparent distress, Oriented x3, Cooperative HEENT: Atraumatic Neck: Supple Respiratory: Clear to auscultation bilaterally, Normal air movement Cardiovascular: Normal pulses, Regular rate/rhythm Gastrointestinal: Normal bowel sounds, Soft and benign, Non-distended, No masses, No rebound, No guarding, Tenderness (No significant abdominal pain noted.) Neurological: Normal speech, Normal strength at 5/5 x4 extr, Normal tone, Normal affect Laboratory Data at Discharge: WBC 8.4 K/uL (4.3-10.9) 09/03/20 05:44 Hgb 11.8 g/dL (13.6-17.9) L 09/03/20 05:44 Hct 34.7 % (39.6-49.0) L 09/03/20 05:44 Plt Count 217 K/uL (152-406) 09/03/20 05:44 Sodium 140 mmol/L (136-145) 09/03/20 05:44 Potassium 4.2 mmol/L (3.5-5.1) 09/03/20 05:44 BUN 11 mg/dL (7-18) 09/03/20 05:44 Creatinine 0.91 mg/dL (0.55-1.3) 09/03/20 05:44 Glucose 121 mg/dL (74-106) H 09/03/20 05:44 Magnesium 2.3 mg/dL (1.8-2.4) 09/03/20 05:44 Total Bilirubin 0.5 mg/dL (0.2-1.0) 09/03/20 05:44 AST 14 U/L (15-37) L 09/03/20 05:44 ALT 23 U/L (12-78) 09/03/20 05:44 Alkaline Phosphatase 74 U/L (45-117) 09/03/20 05:44 Triglycerides 160 mg/dL (<150) H 09/02/20 05:26 Cholesterol 92 mg/dL (<200) 09/02/20 05:26 HDL Cholesterol 30 mg/dL (40-60) L 09/02/20 05:26 Cholesterol/HDL Ratio 3.07 09/02/20 05:26 Lipase 439 U/L (73-393) H 09/03/20 05:44 Home Medications: Aspirin [Aspirin EC 81 MG] 81 mg PO DAILY 09/01/20 Atorvastatin Calcium [Lipitor*] 20 mg PO BEDTIME 09/01/20 Bupropion HCl [Wellbutrin] 150 mg PO DAILY 09/01/20 Clopidogrel Bisulfate [Plavix] 1 tab PO DAILY 09/01/20 Gabapentin 300 mg PO TID 09/01/20 Isosorbide Mononitrate [Isosorbide Mononitrate ER] 30 mg PO BID 09/01/20 Levothyroxine Sodium 25 mcg PO [id number] 09/01/20 Lisinopril [Zestril] 10 mg PO DAILY 09/01/20 Metoprolol Succinate 25 mg PO DAILY 09/01/20 Vitamin B Complex [B Complex] 1 each PO DAILY 09/01/20 hydrOXYzine HCL [Atarax] 50 mg PO BEDTIME PRN 09/01/20 Docosahexanoic AC/Epa [Fish Oil 1,000 MG*] 1,000 mg PO BID #60 cap 09/03/20 Docusate [Colace Cap*] 100 mg PO DAILY PRN #30 cap 09/04/20 Insulin Glargine Human [Lantus*] 10 unit SQ BEDTIME #1 vial 09/04/20 Lactulose [Cephulac*] 30 ml PO BID PRN #1 bottle 09/04/20 traMADol HCL [Ultram*] 50 mg PO TID PRN #10 tab 09/04/20 New Medications: Lactulose [Cephulac*] 30 ml PO BID PRN #1 bottle PRN Reason: Constipation Docusate [Colace Cap*] 100 mg PO DAILY PRN #30 cap PRN Reason: Constipation Docosahexanoic AC/Epa [Fish Oil 1,000 MG*] 1,000 mg PO BID #60 cap Insulin Glargine Human [Lantus*] 10 unit SQ BEDTIME #1 vial traMADol HCL [Ultram*] 50 mg PO TID PRN #10 tab PRN Reason: PAIN Patient Discharge Instructions: 1. Recommend follow up with PCP in 1 week to follow up this hospitalization. 2. Patient presented with abdominal pain, nausea and vomiting. Patient found to have acute pancreatitis. Patient was admitted for further evaluation and treatment. Mild elevation in lipase was noted. Patient with history of pancreatitis in the past. CT scan done at another facility showed pancreatitis. No pseudocyst mention. Abdominal ultrasound done here showed no cholecystitis or biliary tree abnormality. Pancreas appeared and largest suspicious for pancreatitis. No pseudocyst noted. The patient did well then the course of his stay. His diet was slowly advanced. At discharge he is without significant nausea, vomiting or abdominal pain. Etiology of pancreatitis has not been determined. Triglycerides were found to be slightly elevated at 160. Medications reviewed to determine if medication related. At discharge patient will continue with a soft 2000 ADA diet. The patient will be started on fish oil 1000 mg 1 pill twice daily for his hypertriglyceridemia. Will also recommend to discontinue metformin and glipizide as the patient's diabetes is very well controlled on insulin therapy. Recommendation is for the patient to follow up with GI as an outpatient to further evaluate possible etiology of his pancreatitis. 3. Patient with diabetes mellitus type 2 insulin dependent. Diabetes is well controlled at 7.0. Patient did not require any glipizide or metformin during his stay. Patient was on insulin sliding scale in the hospital. Medications reviewed. Glipizide was discontinued due to increase risk of hypoglycemia especially in an elderly patient. Metformin was discontinued as this may be a possible reason for his pancreatitis. At discharge patient will continue with Lantus 10 units subcu at bedtime. Recommend to monitor blood sugar at least twice daily. Recommend to maintain blood sugar less than 140 fasting and less than 200 after meals. Further adjustment in his Lantus may be required. If blood sugars remain elevated consider restarting metformin. This can be done with the help of his PCP. 4. Patient with hypertension. This has remained stable. At discharge patient will continue with lisinopril 10 mg daily and Toprol-XL 25 mg daily. Recommend to maintain blood pressure less than 130/80. Further adjustment in his medication can be done by his PCP. 5. Patient with mixed hyperlipidemia. Triglyceride level slightly elevated at 160. At discharge patient will continue with Lipitor 20 mg daily. Additional medication fish oil 1000 mg 1 pill twice daily has been added. Recommend to recheck fasting lipid panel in 4-6 weeks to monitors progress. Further adjustment can be done by his PCP. 6. Patient with history of CAD, PVD and prior CABG. At discharge patient will continue with aspirin 81 mg daily, Plavix 75 mg daily, and Imdur 30 mg 1 pill twice daily. Recommend follow up with cardiology as directed. 7. Patient with history of depression. At discharge he may continue with Wellbutrin 150 mg daily. 8. Patient with diabetic neuropathy. Patient takes gabapentin 300 mg 3 times a day but he mentions that he primarily takes it at night. Further adjustment in his medication can be done by his PCP. 9. Patient with hypothyroidism. At discharge patient may continue with his levothyroxine 25 mcg daily. Tsh 6.8, free T4 0.97. Recommend to recheck tsh and free T4 in 4-6 weeks. Further adjustment may be required. This can be done with the help of his PCP. 10. Patient had some constipation. Patient will be given lactulose twice daily as needed for constipation. Encourage prune juice. Patient may take stool softener as well. 11. Also encouraged to use incentive spirometer. Diet: ADA Activity: Ad lyndsey Followup: SANTOSH FROST [Primary Care Provider] - Time spent managing pt's care (in minutes): 55
[2020-09-03] MEDS ORDERED: DOCUSATE NA 100 MG CAP PO PRN (08:53)
[2020-09-03] MEDS: BUPROPION HCL 150 MG PO SCH (09:00)
--- NOTE | 2020-09-03 09:10 | P.PN ---
Subjective Date of Service: 09/03/20 Primary Care Provider: [place], Cardiology-Dr. Brown Chief Complaint: Pancreatitis Subjective: Other (Abdominal pain noted primarily diffuse. Patient has not had a bowel movement in over 48 hr. No significant nausea. No significant epi gastric pain noted.) Physical Examination - Vital Signs Temperature: 98.2 F Blood Pressure: 144/65 Pulse: 60 Respirations: 19 Pulse Ox (%): 96 - Physical Exam General: Alert, In no apparent distress, Oriented x3, Cooperative HEENT: Atraumatic Neck: Supple Respiratory: Clear to auscultation bilaterally, Normal air movement Cardiovascular: Normal pulses, Regular rate/rhythm Gastrointestinal: Normal bowel sounds, Tenderness (Abdominal pain improved to the epigastric region. Mild distention to the abdomen. Some diffuse pain to the lower abdomen) Integumentary: No tenderness/swelling, No erythema, No warmth, No cyanosis Neurological: Normal speech, Normal strength at 5/5 x4 extr, Normal tone, Normal affect - Studies Medications List Reviewed: Yes Assessment & Plan Discharge Plan: Home Plan to discharge in: 24 Hours Physician Review Additional Text: Impression: Acute pancreatitis, etiology unknown but suspect medication related versus hypertriglyceridemia Constipation likely from pain medication Diabetes mellitus type 2 Hypertension Hyperlipidemia CAD and PVD history of CABG Depression Diabetic neuropathy Plan Acute pancreatitis, etiology unknown but suspect medication related verses hypertriglyceridemia: Epigastric pain improved. No significant nausea noted. Some diffuse pain noted to the lower abdomen. He has not had a bowel movement in over 48 hr. Suspect constipation. Will check KUB. Will also provide lactulose and docusate. Case reviewed in detail. Abdominal ultrasound unremarkable. Suspect possible etiologies for pancreatitis likely medication related. Triglycerides slightly elevated as well. Will start fish oil. Will recommend to discontinue glipizide, metformin at discharge. Patient recent had cellulitis and UTI and was treated with Bactrim and doxycycline. Both can potentially cause pancreatitis. Other medications that he takes includes anti- inflammatories. This was reviewed in detail with the patient and . Will continue to monitor closely. Will change diet to full liquid. Continue as above. Will reassess today for possible discharge as early as today but likely tomorrow. Constipation likely from pain medication: Will order KUB. Will provide lactulose and docusate. Limit pain medication Diabetes mellitus type 2, insulin dependent, controlled: A1c well controlled at 7.0. Will continue Accu-Cheks and sliding scale. Patient also takes glipizide, metformin, and high-dose insulin Lantus 50 units subcu twice daily. Blood sugars have been well controlled. Will recommend to discontinue glipizide, metformin at discharge. Will also consider significantly decreased seen Lantus at discharge. Glipizide can increase risk of hypoglycemia in the elderly. Metformin can be a potential cause of his pancreatitis. This was discussed in detail with patient and . Hypertension: Continue lisinopril and metoprolol. Will monitor and adjust appropriately. Hyperlipidemia: Triglycerides slightly elevated. Fish oil started. CAD and PVD history of CABG: Continue Plavix and isosorbide mononitrate. Depression: Continue Wellbutrin Diabetic neuropathy: Continue gabapentin Time Spent Managing Pts Care (In Minutes): 55
[2020-09-03] MEDS: ISOSORBIDE MONO SR 30 MG TAB PO SCH ×2 (09:26→20:00)
[2020-09-03] MEDS: METOPROLOL XL 25 MG TAB PO SCH (09:26)
[2020-09-03] MEDS: CLOPIDOGREL 75 MG TABLET PO SCH (09:26)
[2020-09-03] MEDS: VITAMIN B COMPLEX 1 CAP PO SCH (09:26)
[2020-09-03] MEDS: ASPIRIN EC 81 MG TAB PO SCH (09:26)
[2020-09-03] MEDS: lisinopriL 10 MG TAB PO SCH (09:26)
[2020-09-03] MEDS: DOCOSAHEXANOIC AC/EPA 1000 MG PO SCH ×2 (09:26→20:02)
[2020-09-03] MEDS: ENOXAPARIN 40 MG/0.4 ML SQ SCH (09:26)
[2020-09-03] MEDS: LACTULOSE 20 GM/30 ML UCUP PO PRN (10:04)
--- NOTE | 2020-09-03 10:07 | RAD REPORT ---
EXAM DESCRIPTION: RAD - Abdomen 1 View (KUB) - 09/03/2020 9:45 am CLINICAL HISTORY: constipation COMPARISON: No comparisons FINDINGS: Air is present within non distended stomach. No small bowel dilatation. No free air or pne umatosis. Moderately large stool volume is present from cecum to mid descending colon. There is contr ast material intermixed within the stool volume. No abnormal stool volume in the distal descending co gama, sigmoid colon or rectum. Arterial calcifications are present. Aortioiliac stenting in place. No suspicious calcifications. Bony degenerative change present with no acute finding. IMPRESSION: Moderate stool volume mixed with contrast material fills but does not dilate colon from cecum to mid descending colon.
[2020-09-03] MEDS: ATORVASTATIN 20 MG TAB PO SCH (20:00)
[2020-09-03] MEDS: GABAPENTIN 300 MG CAP PO SCH (20:01)
[2020-09-03] MEDS: MEPERIDINE HCL 25 MG/ML SYR IVP PRN (20:02)
[2020-09-03] MEDS: hydrOXYzine HCL 25 MG TAB PO PRN (21:54)
[2020-09-04] MEDS: MEPERIDINE HCL 25 MG/ML SYR IVP PRN ×2 (02:53→06:56)
[2020-09-04] MEDS: HYDROCODONE/APAP 7.5/325 MG TAB PO PRN (03:51)
[2020-09-04] MEDS: NACHLORIDE 0.45% 1,000 ML IV SCH (06:03)
[2020-09-04] MEDS: LACTULOSE 20 GM/30 ML UCUP PO PRN (06:03)
[2020-09-04] MEDS: LEVOTHYROXINE SOD 0.025 MG TAB PO SCH (06:04)
[2020-09-04] MEDS: INSULIN -REGULAR HUMAN 50 UNIT/0.5 ML ML SQ SCH (07:30)
[2020-09-04] MEDS: ENOXAPARIN 40 MG/0.4 ML SQ SCH (09:00)
[2020-09-04] MEDS: VITAMIN B COMPLEX 1 CAP PO SCH (09:38)
[2020-09-04] MEDS: DOCOSAHEXANOIC AC/EPA 1000 MG PO SCH (09:38)
[2020-09-04] MEDS: ASPIRIN EC 81 MG TAB PO SCH (09:38)
[2020-09-04] MEDS: CLOPIDOGREL 75 MG TABLET PO SCH (09:38)
[2020-09-04] MEDS: lisinopriL 10 MG TAB PO SCH (09:39)
[2020-09-04] MEDS: METOPROLOL XL 25 MG TAB PO SCH (09:39)
[2020-09-04] MEDS: ISOSORBIDE MONO SR 30 MG TAB PO SCH (09:39)
[2020-09-04 09:56] VITALS: BP 172/69; TEMP 98.4
[2020-09-04 11:02] VITALS: O2SAT 90
== END 2020-09-04 10:00 | disposition home or self-care (01) | DRG 440 ==
LOC: ER 19:40 → ERHOLD 21:06 → 2ND 21:33
PROVIDERS: ADMIT Family Medicine; ATTEND Family Medicine
DX: K85.30 Drug induced acute pancreatitis without necrosis or infection (principal); I10 Essential (primary) hypertension; E11.51 Type 2 diabetes mellitus with diabetic peripheral angiopathy without gangrene; E03.9 Hypothyroidism, unspecified; E78.2 Mixed hyperlipidemia; K59.00 Constipation, unspecified; F32.9 Major depressive disorder, single episode, unspecified; E11.40 Type 2 diabetes mellitus with diabetic neuropathy, unspecified; E78.1 Pure hyperglyceridemia; I25.10 Atherosclerotic heart disease of native coronary artery without angina pectoris; T36.4X5A Adverse effect of tetracyclines, initial encounter; T36.8X5A Adverse effect of other systemic antibiotics, initial encounter; Z95.1 Presence of aortocoronary bypass graft; Z87.891 Personal history of nicotine dependence; Z79.82 Long term (current) use of aspirin; Z79.4 Long term (current) use of insulin; Z79.02 Long term (current) use of antithrombotics/antiplatelets; Z79.890 Hormone replacement therapy; Z79.899 Other long term (current) drug therapy; Z20.828 Contact with and (suspected) exposure to other viral communicable diseases
CPT/HCPCS: 36415; 74018; 76700; 80048; 80053; 80061; 80076; 81003; 82947; 83036; 83690; 83735; 84439; 84443; 85025; 96361; 96374; 96375; 99285; J1650; J2175; J2405; J7030; J7799; U0003